=== PATIENT | female | born 1955 | race African-American/Black ===

== ENCOUNTER → 2017-12-17 | Outpatient (CLI) | payer OTHER, BC | END | disposition home or self-care (01) | LOC: MAMMO 07:59 | DX: Z12.31 Encounter for screening mammogram for malignant neoplasm of breast (principal) | CPT/HCPCS: 77063; 77067 ==

== ENCOUNTER → 2018-03-23 | Outpatient (CLI) | payer OTHER, BC ==
[2016-02-22 09:00] VITALS: BP 113/75
[~2018-03-23] MED LIST: ATOR20TA58 PO; DICY20TA30 PO; HYDR-971 PO; HYDR12.53 PO; LISI-334 PO; METF10007 PO; RANI150C PO; TRIA1TAB3 PO
--- NOTE | 2018-03-23 12:02 | RAD ---
Complete abdominal ultrasound History: Elevated liver enzymes. Comparison: Ultrasound abdomen September 06, 2014. Procedure: Transabdominal ultrasound images are obtained. Findings: Visualized pancreas is unremarkable. Liver is increased in echogenicity. No focal hepatic masses are identified. Right lobe of the liver measures 15.8 cm. Gallbladder has an unremarkable appearance. Common bile duct measures normally at 3 mm in diameter. Spleen is homogeneous and measures 11.4 cm in length. Right kidney is normal in size and configuration without hydronephrosis. Left kidney is normal in size and configuration without hydronephrosis. Visualized portions of the aorta and IVC have normal caliber. Impression: 1. Echogenic liver, compatible with fatty liver disease. Electronically signed by: Khris Kovacs MD (03/23/2018 11:58 AM) [place] [id number]
--- NOTE | 2018-03-23 16:00 | RAD ---
Left ankle, 3 views, 03/23/2018: HISTORY: Chronic ankle pain There is moderate spurring at the ankle joint. There is a subchondral cyst within the medial aspect of the talar dome which may be on a degenerative or posttraumatic basis. No acute fracture or dislocation is identified. There is a small inferior calcaneal spur. IMPRESSION: 1. Mild to moderate degenerative change at the ankle joint. 2. No acute bony abnormality is detected. Electronically signed by: Osmani Mas MD (03/23/2018 3:57 PM) [facility]
== END | disposition home or self-care (01) ==
LOC: US 08:49
PROVIDERS: ATTEND Family Medicine
DX: M19.072 Primary osteoarthritis, left ankle and foot (principal); M77.32 Calcaneal spur, left foot; R94.5 Abnormal results of liver function studies
CPT/HCPCS: 73610; 76700

== ENCOUNTER → 2019-01-19 | Outpatient (CLI) | payer MEDICARE, OTHER, BC ==
[2016-02-22 09:00] VITALS: BP 113/75
[~2019-01-19] MED LIST changes: +HYDR-3164 PO; -HYDR-971 PO; -HYDR12.53 PO; +HYDR12.575 PO
--- NOTE | 2019-01-19 16:43 | KCIC ---
Bilateral digital screening mammograms with 3-D tomosynthesis: Reason for examination: Routine screening. Comparison is made to previous studies dated 12/17/2017 and 11/28/2015. Bilateral mammograms in CC and oblique projections were obtained with 2-D imaging and 3-D tomosynthesis imaging on a Siemens Inspiration unit and reviewed on the workstation. Interpretation was made with the benefit of CAD. The skin and nipples show no abnormalities. No abnormal axillary lymph nodes are seen. The breast parenchyma shows scattered fatty and fibroglandular density. (Breast density: Category B.) There are small benign-appearing parenchymal densities seen which are stable. There are no new dominant masses, suspicious calcifications or architectural distortion. Impression: No evidence of malignancy. Recommend routine screening. BI-RAD Category 2: Benign. "Our facility is accredited by the [employer] Mammography [employer]." This patient's information has been entered into a reminder system for the patient to be notified with the results of her examination and a target date for the next mammogram. Electronically signed by: Mary Ellen Rene MD (01/19/2019 4:40 PM) [id number]
--- NOTE | 2019-01-20 16:54 | KCIC ---
INDICATION: Osteoporosis screening. Postmenopausal screening COMPARISON: None. TECHNIQUE: Bone densitometry was performed through the lumbar spine and left proximal femurs. FINDINGS: Lumbar Spine: L1-4 BMD: 0.87 T-Score: -1.6 Femoral Neck: BMD: 0.94 T-Score: 0 IMPRESSION: 1. Lumbar spine falls within the osteopenic range. 2. Left femoral neck falls within the normal range. Electronically signed by: Alex Diaz MD (01/20/2019 4:51 PM) [facility]
== END | disposition home or self-care (01) ==
LOC: KCIC DEXA 08:08
PROVIDERS: ATTEND Family Medicine
DX: Z12.31 Encounter for screening mammogram for malignant neoplasm of breast (principal); Z13.820 Encounter for screening for osteoporosis; N64.89 Other specified disorders of breast; E11.9 Type 2 diabetes mellitus without complications; Z78.0 Asymptomatic menopausal state
CPT/HCPCS: 77063; 77067; 77080

== ENCOUNTER → 2020-03-27 | Outpatient (CLI) | payer MEDICARE, OTHER, BC ==
[2016-02-22 09:00] VITALS: BP 113/75
--- NOTE | 2020-03-27 18:43 | RAD ---
BILATERAL SCREENING MAMMOGRAM, 3-D History: Routine screening. Comparison: 02/12/2012 and subsequent exams. Technique: MLO and CC digital tomosynthesis (3D) images obtained. Radiologist reviewed these images on dedicated workstation. Findings: Breast Tissue Density B : There are scattered areas of fibroglandular density. There are no dominant masses, suspicious microcalcifications, or architectural distortion. IMPRESSION: No mammographic evidence of malignancy. Recommend routine screening. BI-RADS category 1: Negative. The images were reviewed with computer-aided detection. Patient information is entered into reminder system with a target due date for the next screening mammogram. Mammography is the most sensitive method for finding small breast cancers, but it does not detect them all and is not a substitute for careful clinical examination. A negative mammogram does not negate a clinically suspicious finding and should not result in delay in biopsying a clinically suspicious abnormality. "Our facility is accredited by the [employer] Mammography Program." Electronically signed by: Craig Anne MD (03/27/2020 6:40 PM) [id number]
== END | disposition home or self-care (01) ==
LOC: MAMMO 10:51
PROVIDERS: ATTEND Family Medicine
DX: Z12.31 Encounter for screening mammogram for malignant neoplasm of breast (principal)
CPT/HCPCS: 77063; 77067

== ENCOUNTER → 2020-05-23 | Outpatient (CLI) | payer MEDICARE, OTHER, BC ==
[2016-02-22 09:00] VITALS: BP 113/75
[~2020-05-23] MED LIST changes: +ALPR0.25 PO; +ASCO500C PO; +ATOR40TA59 PO; +CHOL2400 MC; +DAPA5TAB PO; +LISI10TA2 PO; +NAPR-683 PO; +OMEG100021 PO; +OMEP40CA45 PO
== END ==
LOC: LAB 14:39
PROVIDERS: ATTEND Orthopaedic Surgery
DX: Z01.812 Encounter for preprocedural laboratory examination (principal); Z20.828 Contact with and (suspected) exposure to other viral communicable diseases
CPT/HCPCS: U0003

== ENCOUNTER 2020-05-29 06:08 | Day surgery (SDC) | payer MEDICARE, OTHER, BC ==
[~2020-05-29] VITALS: Ht 154.9 cm; Wt 83.0 kg
[2020-05-29] MEDS ORDERED: HYDR-3164 PO (06:52)
[2020-05-29] MEDS ORDERED: LIDOCAINE 1% Multi-Dose 20 ML VIAL. ONE (06:54)
[2020-05-29 06:55] LABS: BASO # 0.1 x10^3/uL (0.0-0.2); BASO % 2 % (0-3); EOS # 0.2 x10^3/uL (0.0-0.7); EOS % 4 % (0-3); HEMATOCRIT 43.5 % (36.0-47.0); HEMOGLOBIN 14.6 g/dL (12.0-15.5); LYMPH # 2.1 x10^3/uL (1.0-4.8); LYMPH % 46 % (24-48); MEAN CORPUSCULAR HEMOGLOBIN 29 pg (25-35); MEAN CORPUSCULAR HGB CONC 34 g/dL (31-37); MEAN CORPUSCULAR VOLUME 87 fL (79-100); MONO # 0.5 x10^3/uL (0.0-1.1); MONO % 11 % (0-9); NEUT # 1.7 x10^3/uL (1.8-7.7); NEUT % 37 % (31-73); PLATELET COUNT 259 x10^3/uL (140-400); WHITE BLOOD COUNT 4.5 x10^3/uL (4.0-11.0)
--- NOTE | 2020-05-29 06:56 | DISCH ---
DISCHARGE INSTRUCTIONS Condition on Discharge Condition on Discharge: Stable Activity After Discharge Activity Instructions for Disc: Other, see below (avoid hard grasp, fine motor use of hand permitted like eat write or type) Lifting Instructions after Dis: No heavy lifting Diet after Discharge Diet after Discharge: Regular Wound Incision Care Wound/Incision Care: Change dressing (remove dressing in 3 days may then shower) Contacting the after DC Call your doctor for: Concerns you may have Follow-Up Follow up with: Dr. Pretty 10 days JASON PRETTY MD May 29, 2020 06:56
[2020-05-29] MEDS ORDERED: IV RINGERS,LACTATED 1000ML 1,000 ML IV SCH (07:00)
[2020-05-29] MEDS ORDERED: PROCHLORPERAZINE 10 MG/2 ML VIAL. IV PRN (07:00)
[2020-05-29] MEDS ORDERED: fentaNYL PF VIAL 100 MCG/2 ML VIAL IV PRN ×2 (07:00)
[2020-05-29] MEDS ORDERED: MORPHINE SULFATE 2 MG/ML VIAL. IV PRN (07:00)
[2020-05-29] MEDS ORDERED: INSULIN LISPRO 100 UNIT/ML 3ML VIAL for OP,RR ONLY. SQ PRN (07:00)
[2020-05-29] MEDS ORDERED: HYDROmorphone 2 MG/ML VIAL IV PRN (07:00)
[2020-05-29] MEDS ORDERED: ONDANSETRON PF 4 MG/2 ML VIAL. IV PRN (07:00)
[2020-05-29] MEDS ORDERED: LIDOCAINE 1% PF 2 ML VIAL. ID PRN (07:00)
[2020-05-29] MEDS ORDERED: LIDOCAINE 2% PF 5 ML VIAL. ONE (07:02)
[2020-05-29] MEDS ORDERED: PROPOFOL 10 MG/ML (20ML) VIAL. IV ONE (07:02)
[2020-05-29 07:16] LABS: CALCIUM 8.9 mg/dL (8.5-10.1); CREATININE 1.2 mg/dL (0.6-1.0); GFR 54.4; POTASSIUM 3.7 mmol/L (3.5-5.1)
[2020-05-29] MEDS ORDERED: fentaNYL PF VIAL 100 MCG/2 ML VIAL ONE ×2 (07:19→08:17)
[2020-05-29] MEDS ORDERED: DEXAMETHASONE SOD PHOS 4 MG/ML VIAL ONE (07:29)
[2020-05-29] MEDS ORDERED: ONDANSETRON PF 4 MG/2 ML VIAL. ONE (07:29)
[2020-05-29] MEDS ORDERED: FAMOTIDINE 20 MG/2 ML VIAL ONE (07:29)
[2020-05-29] MEDS ORDERED: SEVOFLURANE 16 TO 30 MINUTES. IH ONE (07:32)
--- NOTE | 2020-05-29 08:02 | PDOC4 ---
Operative Note Operative Note Date of surgery: 05/29/2020 Preoperative diagnosis: Right long trigger finger Postoperative diagnosis: Same Operative procedure: Right long trigger finger release Surgeon: Sukhwinder Data Sme: Ankit salazar assist Anesthesia: General Estimated blood loss: 1 cc Complications: None Operative indications: Please see my orthopedic clinic note for detailed operative indications and note that we did cover the possibility of infection nerve or blood vessel damage continued pain stiffness medical or other anesthetic complications among others. She agrees to proceed with surgical evaluation and treatment Operative text: Patient was identified procedure verified patient placed in supine position on the operating table. After adequate amounts of general anesthesia were administered the right upper extremity was prepped and draped in standard sterile fashion with an upper arm tourniquet and after timeout was performed patient procedure identified and verified right upper extremity was exsanguinated by Esmarch bandage tourniquet inflated to 250 mmHg and a transverse incision was made at the distal palmar crease overlying the flexor tendon of the right long finger. Dissection was carried out down to the tendon sheath which was sharply divided and neurovascular bundles were protected the A1 flexor sha was divided completely and eliminated her triggering. Any adhesions were felt for with a [place] elevators irrigation carried out normal saline solution skin closure accomplished with nylon suture sterile dressings were applied fingers were noted to be warm pink following deflation of the tourniquet patient was returned to recovery room in stable condition having tolerated procedure well JASON JAIN MD May 29, 2020 08:02
[2020-05-29] MEDS ORDERED: HYDROcodone/APAP 5/325MG 1 TAB TABLET PO PRN (08:45)
[2020-05-29 08:50] VITALS: BP 110/75
[2020-05-29] MEDS ORDERED: PROCHLORPERAZINE 10 MG/2 ML VIAL. ONE (09:18)
[2020-05-30 03:11] LABS: HEMOGLOBIN A1C 6.7 % (4.8-5.6)
== END 2020-05-29 09:37 | disposition home or self-care (01) ==
LOC: SURG 06:08
PROVIDERS: ATTEND Orthopaedic Surgery
DX: M65.331 Trigger finger, right middle finger (principal); I10 Essential (primary) hypertension; E78.00 Pure hypercholesterolemia, unspecified; K21.9 Gastro-esophageal reflux disease without esophagitis; E66.9 Obesity, unspecified; M19.90 Unspecified osteoarthritis, unspecified site; E11.9 Type 2 diabetes mellitus without complications; Z90.49 Acquired absence of other specified parts of digestive tract; Z90.410 Acquired total absence of pancreas; Z98.890 Other specified postprocedural states; Z79.899 Other long term (current) drug therapy; Z88.8 Allergy status to other drugs, medicaments and biological substances; Z88.5 Allergy status to narcotic agent; Z72.89 Other problems related to lifestyle
CPT/HCPCS: 26055; 36415; 80048; 82962; 83036; 85025; J0690; J0780; J1100; J2405; J2704; J3010; J3490

== ENCOUNTER → 2021-08-29 | Outpatient (CLI) | payer MEDICARE, OTHER, BC ==
[~2021-08-29] MED LIST changes: -LISI-334 PO; +LISI10TA16 PO; -LISI10TA2 PO; +LISI20TA18 PO; -OMEP40CA45 PO; +OMEP40CA7 PO
--- NOTE | 2021-08-29 13:24 | RAD ---
XR EXAM OF ANKLE_LEFT 3V, XR FOOT_LEFT 3 VIEWS DATE: 08/29/2021 11:49 AM INDICATION: ACUTE LEFT ANKLE PAIN. COMPARISON: 03/23/2018. FINDINGS: Bones: Tiny ossific fragment in the dorsal soft tissues near the talonavicular joint, new since 2017. Dorsal and plantar calcaneal enthesophytes. Joints: The ankle mortise is congruent. No widening of the distal tibiofibular syndesmosis. Miscellaneous: None. IMPRESSION: Tiny ossific fragment in the dorsal soft tissues near the talonavicular joint, new since 03/23/2018 an d possibly representing an age-indeterminate avulsion injury. Correlate for focal tenderness Electronically signed by: Brandon Louis MD (08/29/2021 1:21 PM) [id number]
== END ==
LOC: RAD 10:34
PROVIDERS: ATTEND Family Medicine
DX: M77.32 Calcaneal spur, left foot (principal); M25.572 Pain in left ankle and joints of left foot
CPT/HCPCS: 73610; 73630